=== PATIENT | male | born 1960 | race Caucasian/White ===

== ENCOUNTER 2022-02-24 07:48 | Day surgery (SDC) | payer MEDICAID ==
[2022-02-24] MEDS ORDERED: Propofol 200 MG/20 ML SDV IV ONE (07:49)
[2022-02-24] MEDS ORDERED: Sodium Chloride 0.9% 10 ML Syringe FLUSH PRN (08:00)
[2022-02-24] MEDS ORDERED: Sodium Chloride 0.9% 1,000 ML IV SCH (08:00)
[2022-02-24] MEDS ORDERED: Propofol 200 MG/20 ML SDV ONE ×2 (08:42→09:13)
[2022-02-24] MEDS ORDERED: Midazolam 1 MG/ML 2 ML SDV ONE (08:42)
== END 2022-02-24 11:20 | disposition home or self-care (01) ==
LOC: KA.SDS 07:48
PROVIDERS: ATTEND Family Medicine
DX: Z12.11 Encounter for screening for malignant neoplasm of colon (principal); D12.6 Benign neoplasm of colon, unspecified; K57.30 Diverticulosis of large intestine without perforation or abscess without bleeding; I10 Essential (primary) hypertension; E03.9 Hypothyroidism, unspecified; E11.9 Type 2 diabetes mellitus without complications; E66.9 Obesity, unspecified; N40.0 Benign prostatic hyperplasia without lower urinary tract symptoms; Z79.899 Other long term (current) drug therapy; Z80.0 Family history of malignant neoplasm of digestive organs; Z88.6 Allergy status to analgesic agent; Z98.890 Other specified postprocedural states; Z87.891 Personal history of nicotine dependence; Z68.35 Body mass index [BMI] 35.0-35.9, adult
CPT/HCPCS: 82947; J2250; J2704; J7030